=== PATIENT | female | born 1990 | race Caucasian/White ===

== ENCOUNTER 2018-11-13 08:59 | Emergency (ER) | payer OTHER ==
[~2018-11-13] VITALS: Ht 167.6 cm; Wt 104.3 kg
[2018-11-13 09:01] VITALS: BP 129/61; PULSE 67; RESP 18; Ht 167.6 cm; Wt 104.3 kg
--- NOTE | 2018-11-13 09:34 | ERD ---
ER Documentation Chief Complaint Chief Complaint 11 weeks ,vaginal bleeding,pelvic pain HPI This is a 28-year-old female, who presents ED at roughly 11 weeks with complaints of vaginal bleeding since this morning. Patient states that when she urinated this morning as she wiped with tissue paper she noticed blood on the tissue paper. Patient admits to some mild spotting. Denies passing heavy clots. Patient admits to some lower pelvic pain associated with the spotting. Denies dizziness, lightheadedness, headache, nausea, vomiting, diarrhea, constipation, hemoptysis, melena, hematochezia, dysuria, hematuria and other symptoms. Patient's OB doctor is Dr. Venus STEVENSON ROS All systems reviewed and are negative except as per history of present illness. Medications Home Meds Active Scripts Cephalexin* (Keflex*) 500 Mg Capsule, 500 MG PO BID for 7 Days, CAP Prov:BYRON VILLARREAL PA-C 11/13/18 Allergies Allergies: Coded Allergies: No Known Allergy (Unverified , 11/13/18) PMhx/Soc Hx Alcohol Use: No Hx Substance Use: No Hx Tobacco Use: No Smoking Status: Never smoker FmHx Family History: No diabetes Physical Exam Vitals Vital Signs Date Temp Pulse Resp B/P (MAP) Pulse Ox O2 O2 Flow FiO2 Time Delivery Rate 11/13/18 98.2 67 18 129/61 96 09:01 (83) Physical Exam Const: No acute distress Head: Atraumatic Eyes: Normal Conjunctiva ENT: Normal External Ears, Nose and Mouth. Neck: Full range of motion. No meningismus. Resp: Clear to auscultation bilaterally Cardio: Regular rate and rhythm, no murmurs Abd: Soft, protuberant, no peritoneal signs, no rigidity, no surgical abdome n, bowel sounds present all 4 quadrants, nontender light deep palpation all 4 quadrants, no rebound tenderness, no suprapubic tenderness, McBurney's point nontender, Skin: No petechiae or rashes Back: No midline or flank tenderness Ext: No cyanosis, or edema Neur: Awake and alert Psych: Normal Mood and Affect Result Diagram: 11/13/1893811/13/18938 Results 24 hrs Laboratory Tests Test 11/13/18 09:39 11/13/18 09:41 White Blood Count 8.6 10^3/ul Red Blood Count 4.31 10^6/ul Hemoglobin 12.4 g/dl Hematocrit 37.3 % Mean Corpuscular Volume 86.5 fl Mean Corpuscular Hemoglobin 28.8 pg Mean Corpuscular Hemoglobin Concent 33.2 g/dl Red Cell Distribution Width 13.3 % Platelet Count 343 10^3/UL Mean Platelet Volume 10.3 fl Immature Granulocytes % 0.200 % Neutrophils % 66.2 % Lymphocytes % 27.0 % Monocytes % 5.7 % Eosinophils % 0.5 % Basophils % 0.4 % Nucleated Red Blood Cells % 0.0 /100WBC Immature Granulocytes # 0.020 10^3/ul Neutrophils # 5.7 10^3/ul Lymphocytes # 2.3 10^3/ul Monocytes # 0.5 10^3/ul Eosinophils # 0.0 10^3/ul Basophils # 0.0 10^3/ul Nucleated Red Blood Cells # 0.0 10^3/ul Prothrombin Time 12.6 Sec Prothrombin Time Ratio 1.0 INR International Normalized Ratio 0.93 Activated Partial Thromboplast Time 31.7 Sec Sodium Level 140 mmol/L Potassium Level 4.1 mmol/L Chloride Level 107 mmol/L Carbon Dioxide Level 23 mmol/L Anion Gap 10 Blood Urea Nitrogen 8 mg/dl Creatinine 0.45 mg/dl Est Glomerular Filtrat Rate mL/min > 60 mL/min Glucose Level 104 mg/dl Calcium Level 9.1 mg/dl Total Bilirubin 0.0 mg/dl Direct Bilirubin 0.00 mg/dl Indirect Bilirubin 0.0 mg/dl Aspartate Amino Transf (AST/SGOT) 20 IU/L Alanine Aminotransferase (ALT/SGPT) 15 IU/L Alkaline Phosphatase 96 IU/L Total Protein 8.3 g/dl Albumin 4.2 g/dl Globulin 4.10 g/dl Albumin/Globulin Ratio 1.02 Beta HCG, Quantitative 88166.0 mIU/ml Urine Color YELLOW Urine Clarity CLEAR Urine pH 7.0 Urine Specific [place] 1.010 Urine Ketones NEGATIVE mg/dL Urine Nitrite NEGATIVE mg/dL Urine Bilirubin NEGATIVE mg/dL Urine Urobilinogen NEGATIVE mg/dL Urine Leukocyte Esterase 3+ Padmini/ul Urine Microscopic RBC 1 /HPF Urine Microscopic WBC 27 /HPF Urine Squamous Epithelial Cells FEW /HPF Urine Bacteria FEW /HPF Urine Hemoglobin 2+ mg/dL Urine Glucose NEGATIVE mg/dL Urine Total Protein NEGATIVE mg/dl Procedures/MDM EKG, MONITORS, & DIAGNOSTIC IMAGING: [place] [id number] Radiology Main Line: [phone] DIAGNOSTIC IMAGING REPORT Patient: NATALY FONSECA : 1990 Age: 28 Sex: F MR #: [id number] DOS: 11/13/18 0928 Ordering MD: BYRON VILLARREAL PA-C Location: [facility] Room/Bed: PROCEDURE: US OB. CLINICAL INDICATION: First trimester hemorrhage. Threatened . TECHNIQUE: Transabdominal and transvaginal views of the pelvis are available for review. COMPARISON: No prior studies are available for comparison. FINDINGS: The uterus is anteverted. It is of normal contour and echogenicity. Noted is a single intrauterine gestation sac. The sac is slightly irregular in contour and there is heterogeneous material within the fluid. Mean sac diameter measures 1.9 cm in diameter. No heartbeat is seen. [place]-rump length measures 3.2 millimeters corresponding to a gestational age of 6 weeks 0 days by ultrasound criteria. There is no subchorionic hemorrhage. The right ovary measures 4.9 x 2.8 x 5.1 centimeter. The left ovary measures 3.4 x 1.9 x 2.5 centimeter. No solid adnexal masses seen. Noted is a 2.4 cm luteal cyst of the right ovary. There is normal arterial flow to both ovaries on color- flow Doppler imaging. There is no free fluid in the pelvis. No solid pelvic mass is present. IMPRESSION: Single intrauterine gestation of approximate age 6 weeks 0 days by ultrasound criteria. No heartbeat seen. Question viable very early intrauterine versus blighted ovum. Quantitative serial beta HCG levels is recommended for more definitive diagnosis. .Puneet Borges MD, Date Time Electronically viewed and signed by .Puneet Borges MD, MD on 11/13/2018 10:14 .A/ CC: BYRON VILLARREAL PA-C [phone] LAB INTERPRETATION: CBC shows no evidence of hemorrhage or infection Chemistry shows no evidence of significant electrolyte abnormalities or renal insufficiency Liver function test shows no evidence of acute biliary or hepatic dysfunction Coagulation study showed no concerning coagulopathy Urinalysis remarkable for 27 WBCs and 3+ leukocyte esterase Urine culture pending Blood type O+ HCG [id number] ER COURSE: The patient was offered Tylenol for pain but refuses The patient was stable throughout ED course. I kept the patient and/or family informed of laboratory and diagnostic imaging results throughout the emergency room course. The patient was promptly evaluated and a treatment plan was devised based on H&P and other data. This plan was discussed with the patient who agreed and had no further questions or concerns prior to discharge. MEDICAL DECISION MAKING: This is a 28 year-old female, G 1 P 0000, who presents with vaginal bleeding at roughly 11 weeks . Patient states that earlier today while wiping after urinating she noticed blood on the tissue paper. Ultrasound shows a single intrauterine gestation at approximately age 6 weeks old. There is no heart tones seen. Questionable viable very early intrauterine versus blighted ovum.. Discussed with patient the possibility of a nonviable versus an early . Given that the gestational size is approximately age 6 weeks on ultrasound and patient states that she is 11 weeks as this is concerning [place] [address]. Ectopic not visualized. Patient is O+ and does not require any rhogam. She is hemodynamically stable. Patient will need to repeat quantitative hCG in the next 48-72 days to show a upward trend and possibly have repeat ultrasound. Advise for patient either return to the ER for repeat quantitative hCG or to follow-up with her [facility] doctor for this. At this time there is no [facility] [facility] [facility] emergency. Urinalysis reflects UTI. Will treat patient for UTI. No evidence of ectopic , tubo-ovarian abscess, ovarian torsion, hemorrhage. Advised to return to ER with any worsening symptoms. DISPOSITION PLAN: We discussed follow up with the patient's primary care doctor within 24 to 48 hours. Patient counseled regarding my diagnostic impression and care plan. Prior to discharge all questions answered. Pt agrees with treatment plan and understands strict return precautions. Precautionary instructions provided including instructions to return to the ER if not improving or for any worsening or changing symptoms or concerns. SPECIALIST FOLLOW UP RECOMMENDED: ob Patient has been advised to follow up with primary care in 1-2 days. Disclaimer: Inadvertent spelling and grammatical errors are likely due to EHR/dictation software use and do not reflect on the overall quality of patient care. Also, please note that the electronic time recorded on this note does not necessarily reflect the actual time of the patient encounter. Departure Diagnosis: Primary Impression: Vaginal bleeding in patient at less than 20 weeks gestation Additional Impression: UTI (urinary tract infection) Urinary tract infection type: site unspecified Hematuria presence: without hematuria Qualified Codes: N39.0 - Urinary tract infection, site not specified Condition: Stable Patient Instructions: Bleeding During Early , Miscarriage, Possible Miscarriage (Threatened ), Understanding Miscarriage: During a Miscarriage, Understanding Urinary Tract Infections (UTIs) Referrals: [facility] REFERRAL LIST Additional Instructions: Patient given copies of imaging and blood work done in the emergency department today. Patient was advised to follow-up with OB specialist in the next 48-72 hours or return to emergency department here for repeat labs and possibly a repeat ultrasound. Patient advised to return to the ED immediately for new or worsening symptoms. Patient advised to follow up with primary care provider in the next 24-48 hours. Patient verbalized understanding and agrees with treatment plan and course of action. If patient has no primary care they may follow up with one of the community clinics listed on the following page or one of the options listed below [facility] [address] [place] [id number] or [facility] [address] [place] [address] or [facility] [address] [place] [address] BYRON VILLARREAL PA-C Nov 13, 2018 09:34
[2018-11-13] MEDS ORDERED: CEPH-443 PO (11:43)
== END 2018-11-13 11:49 | disposition home or self-care (01) ==
LOC: FTE 08:59
DX: O20.9 Hemorrhage in early pregnancy, unspecified (principal); R10.2 Pelvic and perineal pain; O23.41 Unspecified infection of urinary tract in pregnancy, first trimester; Z3A.01 Less than 8 weeks gestation of pregnancy
CPT/HCPCS: 36415; 76801; 76817; 80053; 81001; 84702; 85025; 85610; 85730; 86900; 86901